=== PATIENT | male | born 1980 | race American Indian/Alaskan Native ===

== ENCOUNTER 2019-02-01 16:55 | Emergency (ER) | payer BC ==
[2019-02-01] MEDS ORDERED: NACL 0.9% 1000 ML 1,000 ML IV ONE (17:22)
--- NOTE | 2019-02-01 17:29 | Emergency Department Report ---
HPI - General Chief Complaint: Syncope Time Seen by Provider: 02/01/19 17:12 - HPI HPI: Room 18 The patient is a 38-year-old male presented with a chief complaint syncope. The patient states it drank some beer this afternoon and 2 hours later went to get his haircut. The patient states while in the [place] became diaphoretic and dizzy and had a syncopal episode. Patient denied pain of any type including chest pain or abdominal pain/headache. Patient denies palpitation or shortness of breath prior to his syncopal episode. Patient received IV fluids and now states he feels better and has no complaints. Patient states he feels as though he was dehydrated. Patient has not noticed blood in the stool recently. Location: [See above] Duration: [See above] Quality: [See above] Severity: [See above] Modifying factors: [see above] Context: [see above] Mode of transportation: [not driving] ED Past Medical Hx - Past Medical History Hx Hypertension: Yes Hx Diabetes: No (borderline diabetes) - Surgical History Past Surgical History?: No - Family History Family history: no significant - Social History Smoking Status: Current Every Day Smoker (1 pack per day) Substance Use Type: None (denies illicit drug use), Alcohol (daily) ED Review of Systems ROS: Stated complaint: SYNCOPE Other details as noted in HPI Constitutional: diaphoresis Eyes: denies: eye pain ENT: denies: throat pain Respiratory: denies: shortness of breath Cardiovascular: denies: chest pain, palpitations Endocrine: no symptoms reported Gastrointestinal: denies: abdominal pain, nausea, vomiting, hematochezia Genitourinary: denies: dysuria Musculoskeletal: denies: back pain Neurological: denies: headache Physical Exam - Physical Exam Vital Signs: Vital Signs 02/01/19 17:14 Temperature 97.6 F Pulse Rate 64 Respiratory 16 Rate Blood Pressure 103/60 O2 Sat by Pulse 98 Oximetry Physical Exam: GENERAL: The patient is well-developed well-nourished male lying on stretcher not appearing to be in acute distress. [] HEENT: Normocephalic. Atraumatic. Extraocular motions are intact. Patient has moist mucous membranes. NECK: Supple. No meningitic signs are noted. There is no adenopathy noted. CHEST/LUNGS: Clear to auscultation. There is no respiratory distress noted. HEART/CARDIOVASCULAR: Regular. There is no tachycardia. There is no gallop rub or murmur. ABDOMEN: Abdomen is soft, nontender. Patient has normal bowel sounds. There is no abdominal distention. SKIN: There is no rash. There is no edema. There is no diaphoresis. NEURO: The patient is awake, alert, and oriented. The patient is cooperative. The patient has no focal neurologic deficits. The patient has normal speech. Cranial nerves II through XII grossly intact, no drift MUSCULOSKELETAL: There is no evidence of acute injury. ED Course Vital Signs 02/01/19 17:14 Temperature 97.6 F Pulse Rate 64 Respiratory 16 Rate Blood Pressure 103/60 O2 Sat by Pulse 98 Oximetry ED Medical Decision Making - Lab Data Result diagrams: 02/01/19 17:29 02/01/19 17:29 Laboratory Tests 02/01/19 02/01/19 02/01/19 17:29 17:29 17:29 WBC 3.8 L RBC 4.23 Hgb 13.3 Hct 39.8 MCV 94 MCH 31 MCHC 33 RDW 13.3 Plt Count 263 Lymph % (Auto) 37.8 H Gonzales % (Auto) 9.7 H Eos % (Auto) 1.0 Baso % (Auto) 0.5 Lymph # 1.4 Gonzales # 0.4 Eos # 0.0 Baso # 0.0 Seg Neutrophils % 51.0 Seg Neutrophils # 1.9 PT 15.0 H INR 1.21 H APTT 23.9 L D-Dimer < 135.00 Sodium 138 Potassium 3.6 Chloride 104.6 Carbon Dioxide 21 L Anion Gap 16 BUN 7 L Creatinine 0.9 Estimated GFR > 60 BUN/Creatinine Ratio 8 Glucose 97 Calcium 8.0 L Magnesium Total Bilirubin 0.40 AST 19 ALT 15 Alkaline Phosphatase 35 Total Creatine Kinase 149 CK-MB (CK-2) 1.2 CK-MB (CK-2) Rel Index 0.8 Troponin T < 0.010 Total Protein 6.2 L Albumin 3.6 L Albumin/Globulin Ratio 1.4 Plasma/Serum Alcohol 02/01/19 02/01/19 17:29 17:29 WBC RBC Hgb Hct MCV MCH MCHC RDW Plt Count Lymph % (Auto) Gonzales % (Auto) Eos % (Auto) Baso % (Auto) Lymph # Gonzales # Eos # Baso # Seg Neutrophils % Seg Neutrophils # PT INR APTT D-Dimer Sodium Potassium Chloride Carbon Dioxide Anion Gap BUN Creatinine Estimated GFR BUN/Creatinine Ratio Glucose Calcium Magnesium 2.20 Total Bilirubin AST ALT Alkaline Phosphatase Total Creatine Kinase CK-MB (CK-2) CK-MB (CK-2) Rel Index Troponin T Total Protein Albumin Albumin/Globulin Ratio Plasma/Serum Alcohol 0.16 H - EKG Data -: EKG Interpreted by Me EKG shows normal: sinus rhythm Rate: normal - EKG Data When compared to previous EKG there are: previous EKG unavailable Interpretation: nonspecific ST-T wave mena - Radiology Data Radiology results: report reviewed (CT head), image reviewed (CT head) [facility] [address] [id number] Cat Scan Report Signed Patient: DAGMAR MATTSON MR#: [id number] : 1980 Acct:[id number] Age/Sex: 38 / M ADM Date: 02/01/19 Loc: ED Attending Dr: Ordering Physician: DEANDRE ROBERTS MD Date of Service: 02/01/19 Procedure(s): CT head/brain wo con Accession Number(s): [id number] cc: DEANDRE ROBERTS MD PROCEDURE: CT HEAD/BRAIN WO CON TECHNIQUE: Computerized tomography of the head was performed without contrast material. CT DOSE LENGTH PRODUCT: 920.5 mGycm HISTORY: syncope COMPARISONS: None . FINDINGS: Skull and scalp: Normal . Paranasal sinuses: Normal . Ventricles and subarachnoid spaces: Normal . Cerebrum: No evidence of hemorrhage, acute infarction or mass . Cerebellum and brainstem: No evidence of hemorrhage, acute infarction or mass . Vasculature: Normal . Other: None . ASPECTS: 10 IMPRESSION: No acute intracranial abnormality. This document is electronically signed by Ijeoma Erwin MD., February 01 2019 06:19:55 PM ET Transcribed By: [facility] Dictated By: IJEOMA ERWIN MD Electronically Authenticated By: IJEOMA ERWIN MD Signed Date/Time: 02/01/191820 DD/ 04 TD/TT: 02/01/191804 - Medical Decision Making Informed by nursing the patient has eloped - Differential Diagnosis dehydration, intracranial mass, PE,Abnormality Critical care attestation.: If time is entered above; I have spent that time in minutes in the direct care of this critically ill patient, excluding procedure time. ED Disposition Clinical Impression: Syncope, Alcohol intoxication Disposition: ELOPED Is pt being admited?: No Does the pt Need Aspirin: No Condition: Undetermined Instructions: Syncope (ED) Time of Disposition: 21:36 (patient eloped)
[2019-02-01 18:00] LABS: Basophils % (Auto) 0.5 % (0.0-1.8); Hematocrit 39.8 % (35.5-45.6); Hemoglobin 13.3 gm/dl (11.8-15.2); Lymphocytes # (Auto) 1.4 K/mm3 (1.2-5.4); Lymphocytes % (Auto) 37.8 % (13.4-35.0); Mean Corpuscular HGB Conc 33 % (32-34); Mean Corpuscular Volume 94 fl (84-94); Monocytes # (Auto) 0.4 K/mm3 (0.0-0.8); Monocytes % (Auto) 9.7 % (0.0-7.3); Platelet Count 263 K/mm3 (140-440); Red Blood Count 4.23 M/mm3 (3.65-5.03); Red Cell Distribution Width 13.3 % (13.2-15.2)
[2019-02-01 18:09] LABS: INR 1.21 (0.87-1.13); Partial Thromboplastin Time 23.9 Sec. (24.2-36.6)
--- NOTE | 2019-02-01 18:21 | Cat Scan Report ---
PROCEDURE: CT HEAD/BRAIN WO CON TECHNIQUE: Computerized tomography of the head was performed without contrast material. CT DOSE LENGTH PRODUCT: 920.5 mGycm HISTORY: syncope COMPARISONS: None . FINDINGS: Skull and scalp: Normal . Paranasal sinuses: Normal . Ventricles and subarachnoid spaces: Normal . Cerebrum: No evidence of hemorrhage, acute infarction or mass . Cerebellum and brainstem: No evidence of hemorrhage, acute infarction or mass . Vasculature: Normal . Other: None . ASPECTS: 10 IMPRESSION: No acute intracranial abnormality. This document is electronically signed by Ijeoma Erwin MD., February 01 2019 06:19:55 PM ET
[2019-02-01 18:29] LABS: Alanine Aminotransferase 15 units/L (7-56); Albumin 3.6 g/dL (3.9-5); BUN/Creatinine Ratio 8; Blood Urea Nitrogen 7 mg/dL (9-20); Hemolysis Index 8
[2019-02-01 18:44] LABS: Creatine Kinase MB 1.2 ng/mL (0.0-4.0)
[2019-02-01 21:39] VITALS: BP 113/72
== END 2019-02-01 21:39 | disposition left against medical advice (07) ==
LOC: ED 16:55
DX: R55 Syncope and collapse (principal); F10.129 Alcohol abuse with intoxication, unspecified; I10 Essential (primary) hypertension; F17.200 Nicotine dependence, unspecified, uncomplicated
CPT/HCPCS: 36415; 70450; 80053; 82550; 82553; 83735; 84484; 85025; 85379; 85610; 85730; 93005; 93010; 96360; 99284; G0480; 80320